=== PATIENT | male | born 1985 | race African-American/Black ===

== ENCOUNTER 2017-07-15 11:56 | Emergency (ER) | payer SELFPAY ==
[~2017-07-15] VITALS: Ht 170.2 cm; Wt 55.5 kg
[2017-07-15 13:23] VITALS: BP 114/60; PULSE 107; RESP 20; TEMP 99.2
[2017-07-15 14:08] LABS: AUTOMATED NEUTROPHIL # 9.4 TH/MM3 (1.8-7.7); BASOPHIL % 0.3 % (0.0-2.0); EOSINOPHIL # 0.3 TH/MM3 (0-0.4); EOSINOPHIL % 2.5 % (0.0-4.0); HEMATOCRIT 46.8 % (39.0-51.0); LYMPH % 14.6 % (9.0-44.0); LYMPHOCYTE # 1.9 TH/MM3 (1.0-4.8); MEAN CELL VOLUME 90.1 FL (80.0-100.0); MEAN CORPUSCULAR HEMOGLOBIN 30.9 PG (27.0-34.0); MEAN CORPUSCULAR HGB CONC 34.3 % (32.0-36.0); MEAN PLATELET VOLUME 8.5 FL (7.0-11.0); MONO % 9.3 % (0.0-8.0); MONOCYTE # 1.2 TH/MM3 (0-0.9); NEUT % 73.3 % (16.0-70.0); PLATELET COUNT 277 TH/MM3 (150-450); RED BLOOD COUNT 5.19 MIL/MM3 (4.50-5.90); RED CELL DISTRIBUTION WIDTH 14.5 % (11.6-17.2); WHITE BLOOD COUNT 12.8 TH/MM3 (4.0-11.0)
[2017-07-15 14:28] LABS: ALKALINE PHOSPHATASE 66 U/L (45-117); TOTAL BILIRUBIN ADULT 0.2 MG/DL (0.2-1.0); TOTAL PROTEIN 7.9 GM/DL (6.4-8.2)
[2017-07-15 14:48] LABS: ALBUMIN 3.7 GM/DL (3.4-5.0); ALT (GPT) 17 U/L (12-78); AST (GOT) 17 U/L (15-37); BICARBONATE 28.7 MEQ/L (21.0-32.0); BLOOD UREA NITROGEN 6 MG/DL (7-18); CALCIUM 9.1 MG/DL (8.5-10.1); CHLORIDE 103 MEQ/L (98-107); GLOMERULAR FILTRATION RATE 64 ML/MIN (>89); GLUCOSE,RANDOM 81 MG/DL (74-106); SODIUM (NA) 139 MEQ/L (136-145)
--- NOTE | 2017-07-15 17:50 | PD ---
HPI Chief Complaint: Abdominal Pain Time Seen by Provider: 17:29 Travel History International Travel<30 days: No Contact w/Intl Traveler<30days: No Traveled to known affect area: No History of Present Illness HPI 31-year-old male complains abdominal pain, diarrhea, blood per rectum. Patient states that he has constant abdominal cramping on the upper abdomen and right side abdomen for the past 5 days. Patient stated pain and cramping pain with radiation to the back. Patient states that he has intermittent low-grade fever at home. Patient denies any nausea vomiting. Patient states that he has diarrhea. Patient noticed blood on the tissue after bowel movement yesterday but not since then. Patient denies any dysuria frequency. Patient denies any previous GI issue. Patient denies any medical problem. Patient is not on routine medication. PFSH Past Medical History Hx Anticoagulant Therapy: No Cardiovascular Problems: No Chemotherapy: No Cerebrovascular Accident: No Diabetes: No Respiratory: No Social History Alcohol Use: Yes Tobacco Use: Yes Substance Use: Yes (COCAINE) Allergies-Medications (Allergen,Severity, Reaction): Coded Allergies: No Known Allergies (Unverified , 07/15/17) Reported Meds & Prescriptions Reported Meds & Active Scripts Active No Active Prescriptions or Reported Medications Review of Systems General / Constitutional: No: Fever Eyes: No: Visual changes HENT: No: Headaches Cardiovascular: No: Chest Pain or Discomfort Respiratory: No: Shortness of Breath Gastrointestinal: Positive: Diarrhea, Abdominal Pain, Hematochezia Genitourinary: No: Dysuria Musculoskeletal: No: Pain Skin: No Rash Neurologic: No: Weakness Psychiatric: No: Depression Endocrine: No: Polydipsia Hematologic/Lymphatic: No: Easy Bruising Physical Exam Narrative GENERAL: Well-nourished, well-developed patient. SKIN: Focused skin assessment warm/dry. HEAD: Normocephalic. EYES: No scleral icterus. No injection or drainage. NECK: Supple, trachea midline. No JVD or lymphadenopathy. CARDIOVASCULAR: Regular rate and rhythm without murmurs, gallops, or rubs. RESPIRATORY: Breath sounds equal bilaterally. No accessory muscle use. GASTROINTESTINAL: Abdomen soft, nondistended. Patient has moderate tenderness in palpation left upper quadrant of the abdomen, right upper quadrant abdomen and right mid abdomen. No rebound tenderness. No mass. Rectal exam Hemoccult negative. MUSCULOSKELETAL: No cyanosis, or edema. BACK: Nontender without obvious deformity. No CVA tenderness. Data Data Last Documented VS Vital Signs Date Time Temp Pulse Resp B/P (MAP) Pulse Ox O2 Delivery O2 Flow Rate FiO2 07/15/17 19:39 84 16 103/62 (76) 98 Room Air 07/15/17 13:23 99.2 Orders Orders Complete Blood Count With Diff (07/15/17 13:29) Comprehensive Metabolic Panel (07/15/17 13:29) Urinalysis - C+S If Indicated (07/15/17 13:29) Lipase (07/15/17 13:29) Ct Abd/Pel W Iv Contrast(Rout) (07/15/17 17:42) Iohexol 350 Inj (Omnipaque 350 Inj) (07/15/17 19:15) Labs Laboratory Tests Test 07/15/17 13:40 07/15/17 17:45 White Blood Count 12.8 TH/MM3 Red Blood Count 5.19 MIL/MM3 Hemoglobin 16.0 GM/DL Hematocrit 46.8 % Mean Corpuscular Volume 90.1 FL Mean Corpuscular Hemoglobin 30.9 PG Mean Corpuscular Hemoglobin Concent 34.3 % Red Cell Distribution Width 14.5 % Platelet Count 277 TH/MM3 Mean Platelet Volume 8.5 FL Neutrophils (%) (Auto) 73.3 % Lymphocytes (%) (Auto) 14.6 % Monocytes (%) (Auto) 9.3 % Eosinophils (%) (Auto) 2.5 % Basophils (%) (Auto) 0.3 % Neutrophils # (Auto) 9.4 TH/MM3 Lymphocytes # (Auto) 1.9 TH/MM3 Monocytes # (Auto) 1.2 TH/MM3 Eosinophils # (Auto) 0.3 TH/MM3 Basophils # (Auto) 0.0 TH/MM3 CBC Comment DIFF FINAL Differential Comment Blood Urea Nitrogen 6 MG/DL Creatinine 1.30 MG/DL Random Glucose 81 MG/DL Total Protein 7.9 GM/DL Albumin 3.7 GM/DL Calcium Level 9.1 MG/DL Alkaline Phosphatase 66 U/L Aspartate Amino Transf (AST/SGOT) 17 U/L Alanine Aminotransferase (ALT/SGPT) 17 U/L Total Bilirubin 0.2 MG/DL Sodium Level 139 MEQ/L Potassium Level 3.7 MEQ/L Chloride Level 103 MEQ/L Carbon Dioxide Level 28.7 MEQ/L Anion Gap 7 MEQ/L Estimat Glomerular Filtration Rate 64 ML/MIN Lipase 234 U/L Urine Color YELLOW Urine Turbidity CLEAR Urine pH 6.0 Urine Specific [place] 1.033 Urine Protein 30 mg/dL Urine Glucose (UA) NEG mg/dL Urine Ketones TRACE mg/dL Urine Occult Blood NEG Urine Nitrite NEG Urine Bilirubin NEG Urine Urobilinogen 2.0 MG/DL Urine Leukocyte Esterase NEG Urine WBC 1 /hpf Urine Squamous Epithelial Cells <1 /hpf Urine Mucus MANY /lpf Microscopic Urinalysis Comment CULT NOT INDICATED MDM Medical Decision Making Medical Screen Exam Complete: Yes Emergency Medical Condition: Yes Interpretation(s) Last Impressions Abdomen/Pelvis CT 07/15/17 1742 Signed Impressions: Service Date/Time: Saturday, July 15, 2017 18:58 - CONCLUSION: 1. No acute findings on abdomen and pelvic CT. Mild constipation. Stomach mildly distended. Rigo Jennings MD 2051 PM. CBC WBC 12.8. 73 neutrophil. CMP within normal limits. UA is negative. Differential Diagnosis Differential diagnosis including colitis, gastroenteritis, gastritis, PUD, pancreatitis, UTI, pyelonephritis, nephrolithiasis, appendicitis. Narrative Course 31-year-old male with left lower quadrant tenderness, right lower quadrant tenderness, right mid abdominal tenderness, diarrhea. Protonix 40 mg p.o. given. Maalox 30 cc p.o. 10 cc p.o. given. Diagnosis Primary Impression: Abdominal pain Qualified Codes: R10.11 - Right upper quadrant pain Additional Impression: Gastritis Qualified Codes: K29.00 - Acute gastritis without bleeding Patient Instructions: General Instructions Additional Instructions: Take medication as directed. Follow-up with personal physician. Return if persistent problem or worse. Med/Other Pt SpecificInfo: Prescription(s) given Scripts Dicyclomine (Bentyl) 10 Mg Cap 10 MG PO TID Y for Bowel Management, #21 CAP 0 Refills Prov: Arpit Banuelos MD 07/15/17 Sucralfate (Carafate) 1 Gram Tab 1 GM PO QID for Ulcer Prevention, #120 TAB 0 Refills On empty stomach Prov: Aript Banuelos MD 07/15/17 Pantoprazole (Protonix) 40 Mg Tab 40 MG PO DAILY for Reflux, #30 TAB 0 Refills Prov: Arpit Banuelos MD 3/10/18 Disposition: 01 DISCHARGE HOME Condition: Stable Arpit Banuelos MD Jul 15, 2017 17:50
[2017-07-15 18:32] LABS: BILIRUBIN, URINE NEG (NEG); BLOOD, URINE NEG (NEG); GLUCOSE,URINE NEG (NEG); KETONE, URINE TRACE mg/dL (NEG); MUCUS URINE MANY /lpf (OCC); NITRITE,URINE NEG (NEG); SQUAMOUS EPITHELIAL CELL URINE <1 /hpf (0-5); URINE COLOR YELLOW (YELLW/STRAW); URINE LEUKOCYTE ESTERASE NEG (NEG)
[2017-07-15] MEDS ORDERED: IOHEXOL 350 MG/ML 10 ML VIAL (for RAD DIAG) IVCONTRAST ONE (19:15)
--- NOTE | 2017-07-15 19:31 | RADRPT ---
EXAM DATE/TIME: 07/15/2017 18:58 [facility] COMPARISON: No previous studies available for comparison. INDICATIONS : Upper right abdomen pain. IV CONTRAST: 70 cc Omnipaque 350 (iohexol) IV ORAL CONTRAST: No oral contrast ingested. RADIATION DOSE: 6.64 CTDIvol (mGy) MEDICAL HISTORY : None SURGICAL HISTORY : None. ENCOUNTER: Initial ACUITY: 1 day PAIN SCALE: 4/10 LOCATION: Abdomen TECHNIQUE: Volumetric scanning of the abdomen and pelvis was performed. Using automated exposure control and ad justment of the mA and/or kV according to patient size, radiation dose was kept as low as reasonably achievable to obtain optimal diagnostic quality images. DICOM format image data is available electro nically for review and comparison. FINDINGS: LOWER LUNGS: The visualized lower lungs are clear. LIVER: Homogeneous density without lesion. There is no dilation of the biliary tree. No calcified [place] es. SPLEEN: Normal size without lesion. PANCREAS: Within normal limits. KIDNEYS: Normal in size and shape. There is no mass, stone or hydronephrosis. ADRENAL GLANDS: Within normal limits. VASCULAR: There is no aortic aneurysm. BOWEL/MESENTERY: The stomach, small bowel, and colon demonstrate no acute abnormality. There is no free intraperitone al air or fluid. ABDOMINAL WALL: Within normal limits. RETROPERITONEUM: There is no lymphadenopathy. BLADDER: No wall thickening or mass. REPRODUCTIVE: Within normal limits. INGUINAL: There is no lymphadenopathy or hernia. MUSCULOSKELETAL: Within normal limits for patient age. CONCLUSION: 1. No acute findings on abdomen and pelvic CT. Mild constipation. Stomach mildly distended. Rigo Jennings MD on July 15, 2017 at 19:27 Board Certified Radiologist. This report was verified electronically.
[2017-07-15 19:39] VITALS: BP 103/62; PULSE 84; RESP 16; O2SAT 98
[2017-07-15] MEDS ORDERED: PROT40TA PO (20:57)
[2017-07-15] MEDS ORDERED: DICY10 PO (20:57)
[2017-07-15] MEDS ORDERED: CARA1TAB6 PO (20:57)
[2017-07-15] MEDS ORDERED: PANTOPRAZOLE SOD 40 MG DELAYED RELEASE TAB PO ONE (21:00)
[2017-07-15] MEDS ORDERED: ALUMINUM/MAGNESIUM/SIMETH 30 ML CUP PO ONE (21:00)
[2017-07-15] MEDS ORDERED: ATROPINE/SCOPOLAM/HYOSCYAM/PB ELIXIR 10 ML CUP PO ONE (21:00)
== END 2017-07-15 21:25 | disposition home or self-care (01) ==
LOC: NEPD 11:56
DX: K29.70 Gastritis, unspecified, without bleeding (principal); K59.00 Constipation, unspecified; F14.90 Cocaine use, unspecified, uncomplicated; Z72.0 Tobacco use
CPT/HCPCS: 74177; 80053; 81001; 83690; 85025; 99284; Q9967

== ENCOUNTER 2017-07-30 16:54 | Emergency (ER) | payer SELFPAY ==
[~2017-07-30] VITALS: Ht 172.7 cm; Wt 54.5 kg
[~2017-07-30 16:54] MED LIST: CARA1TAB6 PO; DICY10 PO; PROT40TA PO
[2017-07-30 17:15] VITALS: BP 144/109; PULSE 100; RESP 18; TEMP 98.7; O2SAT 98
[2017-07-30] MEDS ORDERED: HYDROmorphone HCL PF 2 MG/ML VIAL IV PUSH ONE (17:15)
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
[2017-07-30 17:18] VITALS: BP 144/109; PULSE 96; RESP 18; TEMP 98.7; O2SAT 99
[2017-07-30 17:43] LABS: BASOPHIL # 0.1 TH/MM3 (0-0.2); EOSINOPHIL # 0.4 TH/MM3 (0-0.4); EOSINOPHIL % 4.7 % (0.0-4.0); HEMATOCRIT 43.3 % (39.0-51.0); HEMOGLOBIN 14.7 GM/DL (13.0-17.0); LYMPH % 31.5 % (9.0-44.0); LYMPHOCYTE # 2.9 TH/MM3 (1.0-4.8); MEAN CELL VOLUME 91.6 FL (80.0-100.0); MEAN CORPUSCULAR HEMOGLOBIN 31.1 PG (27.0-34.0); MEAN CORPUSCULAR HGB CONC 33.9 % (32.0-36.0); MEAN PLATELET VOLUME 7.9 FL (7.0-11.0); MONO % 8.7 % (0.0-8.0); MONOCYTE # 0.8 TH/MM3 (0-0.9); NEUT % 54.1 % (16.0-70.0); PLATELET COUNT 357 TH/MM3 (150-450); RED BLOOD COUNT 4.73 MIL/MM3 (4.50-5.90); RED CELL DISTRIBUTION WIDTH 15.5 % (11.6-17.2); WHITE BLOOD COUNT 9.3 TH/MM3 (4.0-11.0)
[2017-07-30 17:52] LABS: BICARBONATE 24.2 MEQ/L (21.0-32.0); CALCIUM 6.4 MG/DL (8.5-10.1); CREATININE 0.81 MG/DL (0.60-1.30)
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
[2017-07-30 18:09] LABS: TOTAL PROTEIN 5.9 GM/DL (6.4-8.2)
[2017-07-30] MEDS ORDERED: SODIUM CHLOR 0.9% 1000 ML INJ 1,000 ML IV ONE (18:15)
[2017-07-30] MEDS ORDERED: CALCIUM GLUCONATE INJ 2 GM in DEXTROSE 5% IN WATER 100ML INJ 100 ML IV ONE ×2 (18:15)
[2017-07-30] MEDS ORDERED: DIPHTH/TETANUS/ACEL PERTUSSIS (BOOSTER) 0.5 ML VIAL/PFS IM ONE (18:30)
[2017-07-30 19:52] VITALS: BP 136/76; PULSE 69; RESP 18; O2SAT 99
== END 2017-07-30 20:34 | disposition short-term general hospital (02) ==
LOC: NEPC 16:54
DX: T23.201A Burn of second degree of right hand, unspecified site, initial encounter (principal); F14.10 Cocaine abuse, uncomplicated; X08.8XXA Exposure to other specified smoke, fire and flames, initial encounter; Z72.0 Tobacco use; Z23 Encounter for immunization
CPT/HCPCS: 73130; 80048; 84155; 85025; 90471; 90715; 96361; 96374; 96375; 99285; J0610; J1170; J7030